=== PATIENT | male | born 1975 | race Caucasian/White ===

== ENCOUNTER 2018-09-20 12:12 | Day surgery (SDC) | payer OTHER ==
[2018-09-20] MEDS ORDERED: PROPOFOL 20 ML (15:21)
== END 2018-09-20 17:37 | disposition home or self-care (01) ==
LOC: GIL 12:12
DX: K62.5 Hemorrhage of anus and rectum (principal); D12.7 Benign neoplasm of rectosigmoid junction; K57.30 Diverticulosis of large intestine without perforation or abscess without bleeding; I10 Essential (primary) hypertension
CPT/HCPCS: 45380; 88305